=== PATIENT | male | born 1965 | race Caucasian/White ===

== ENCOUNTER 2018-06-10 12:43 | Outpatient (CLI) | payer MEDICAID, SELFPAY ==
[2018-06-10 14:12] LABS: Cholesterol 251 mg/dL (50-200); HDL Cholesterol 46 mg/dL (40-60); LDL CHOLESTEROL 158 mg/dL (<100); TSH (W/Ref FT4) 6.46 uIU/mL (0.358-3.74); Triglyceride 204 mg/dL (30-150)
[2018-06-10 14:34] LABS: FREE T4 0.97 ng/dL (0.76-1.46)
[2018-06-12 10:24] LABS: PSA, Screening 0.7 ng/ml (0-3.5)
== END 2018-06-10 13:03 ==
PROVIDERS: PCP Family Medicine; Visit Provider Family Medicine
DX: R94.6 Abnormal results of thyroid function studies (principal); Z13.220 Encounter for screening for lipoid disorders; Z12.5 Encounter for screening for malignant neoplasm of prostate
CPT/HCPCS: 36415; 80061; 83721; 84153; 84439; 84443

== ENCOUNTER 2019-06-17 08:14 | Outpatient (CLI) | payer MEDICAID, SELFPAY ==
[2019-06-17 09:17] LABS: Calculated LDL 168 mg/dL; Cholesterol 235 mg/dL (<200); HDL Cholesterol 43 mg/dL (40-60); TSH (W/Ref FT4) 0.95 uIU/mL (0.36-3.74); Triglyceride 120 mg/dL (<150)
[2019-06-22 09:32] LABS: PSA, Screening 0.7 ng/mL (0.0-3.5)
== END 2019-06-17 08:34 ==
PROVIDERS: PCP Family Medicine; Visit Provider Family Medicine
DX: E78.5 Hyperlipidemia, unspecified (principal); E03.9 Hypothyroidism, unspecified; Z12.5 Encounter for screening for malignant neoplasm of prostate
CPT/HCPCS: 36415; 80061; 84153; 84443

== ENCOUNTER 2020-02-26 07:09 | Outpatient (CLI) | payer MEDICAID, SELFPAY ==
[2020-02-26 11:52] LABS: Abs Immature Grans 0.03 10^3/uL (0.0-0.06); Absolute Basophil Count 0.03 10^3/uL (0.0-0.2); Absolute Eosinophil Count 0.16 10^3/uL (0.0-0.7); Absolute Lymphocyte Count 1.24 10^3/uL (1.2-3.4); Absolute Monocyte Count 0.33 10^3/uL (0.1-0.8); Basophils % 0.6; Eosinophils % 3.1; HCT 47.1 % (40.0-50.0); HGB 15.9 g/dL (13.5-17.5); Immature Grans % 0.6; Lymphocytes % 23.9; MCH 29.9 pg (27.0-33.0); MCHC 33.8 % (32.0-36.0); MCV 88.5 fL (80-95); MPV 11.4 fL (8.0-11.0); Monocytes % 6.4; Neutrophils % 65.4; Nucleated RBC 0 %; Platelet Count 189 10^3/uL (130-400); RBC 5.32 10^6/uL (4.36-5.78); RDW 12.6 % (11.8-14.1); WBC 5.19 10^3/uL (4.4-10.8)
[2020-02-26 12:05] LABS: Hemoglobin A1C 5.6 % (<5.7)
[2020-02-26 13:15] LABS: ALT 61 U/L (16-63); AST 31 U/L (15-37); Albumin 4.1 g/dL (3.4-5.0); Alkaline Phosphatase 59 U/L (46-116); Anion Gap 5.5 mmol/L (3-11); BUN 21 mg/dL (7-18); Bilirubin, Total 0.7 mg/dL (0.2-1.0); CO2 29.5 mmol/L (21.0-32.0); CREATININE 0.96 mg/dL (0.70-1.30); Calcium 9.3 mg/dL (8.5-10.1); Calculated LDL 131 mg/dL (<100); Chloride 105 mmol/L (98-107); Cholesterol 205 mg/dL (<200); Glucose 95 mg/dL (74-106); HDL Cholesterol 57 mg/dL (40-60); Potassium 4.2 mmol/L (3.5-5.1); Sodium 140 mmol/L (136-145); Total Protein 6.7 g/dL (6.4-8.2); Triglyceride 88 mg/dL (<150)
[2020-02-26 18:10] LABS: PSA, Screening 0.9 ng/mL (0.0-3.5)
[2020-02-28 11:49] LABS: Lipoprotein (a) <6 mg/dL (<=30)
[2020-03-01 16:50] LABS: Estradiol, Mass Spectrometry 16 pg/mL (10-40); Estrone 22 pg/mL (10-60)
[2020-03-08 09:23] LABS: Testosterone, Free 9.56 ng/dL (4.06-15.6); Testosterone, Total 354 ng/dL (240-950)
== END 2020-02-26 07:29 ==
PROVIDERS: PCP Family Medicine; Visit Provider Naturopath
DX: E78.5 Hyperlipidemia, unspecified (principal); Z12.5 Encounter for screening for malignant neoplasm of prostate; Z80.42 Family history of malignant neoplasm of prostate; Z77.011 Contact with and (suspected) exposure to lead
CPT/HCPCS: 36415; 80053; 80061; 83695; 84153; 84402; 84403; 82670; 82679; 83036; 83655; 85025

== ENCOUNTER 2020-03-18 07:37 | Outpatient (CLI) | payer MEDICAID, SELFPAY ==
[2020-03-22 13:36] LABS: Patient Race White; SARS-CoV-2 RNA Undetected (Undetected); SARS-CoV-2 Specimen Source Nasal
== END 2020-03-18 07:57 ==
PROVIDERS: PCP Family Medicine; Visit Provider Naturopath
DX: Z11.59 Encounter for screening for other viral diseases (principal)
CPT/HCPCS: U0003

== ENCOUNTER 2020-04-18 04:23 | Outpatient (CLI) | payer MEDICAID, SELFPAY ==
[2020-04-19 19:38] LABS: Patient Race White; SARS-CoV-2 RNA Undetected (Undetected); SARS-CoV-2 Specimen Source Nasal
== END 2020-04-18 04:43 ==
PROVIDERS: PCP Family Medicine; Visit Provider Family Medicine
DX: Z11.59 Encounter for screening for other viral diseases (principal)
CPT/HCPCS: U0003

== ENCOUNTER 2020-07-08 00:41 | Outpatient (CLI) | payer MEDICAID, SELFPAY ==
[2020-07-08 12:57] LABS: TSH (W/Ref FT4) 2.21 uIU/mL (0.36-3.74)
== END 2020-07-08 00:42 | disposition home or self-care (01) ==
LOC: LOS 00:41
PROVIDERS: PCP Family Medicine; Visit Provider Family Medicine
DX: E03.9 Hypothyroidism, unspecified (principal)
CPT/HCPCS: 36415; 84443

== ENCOUNTER 2021-10-09 08:57 | Day surgery (SDC) | payer MEDICAID, SELFPAY ==
--- NOTE | 2021-10-09 06:54 | W.COLOREPORT ---
Colonoscopy Report Date of procedure: 10/09/21 Pre-op diagnosis general: Colon Cancer screening Post-op diagnosis procedure note: same Procedure: Colonoscopy Surgeon: Nyla Lucas Anesthesia Type: General:No Airway Estimated blood loss (mL): 0 Pathology: none sent Complications: None Disposition: same day Indications: The patient is here for Colonoscopy pre-op.? He has no family history of colon cancer. He has not had any bowel habit changes. -Discussed colonoscopy bowel prep as well as the procedure. Discussed possible complications of the procedure to include bleeding, pain, perforation, missed small lesion/polyp, sore throat, aspiration and adverse reaction to the medications. Questions were answered to patient?s satisfaction. No guarantees were implied or given.? Prep: Miralax/Dulcolax Procedure Start Time: 11:06 Procedure End Time: 11:23 Retraction Time: 11 minutes Findings: Normal colon Procedure Description: After informed consent was obtained the patient was taken to the procedure room and placed in a left decubitous position. Monitors were applied and a time out was done. The patients name, date of , procedure, allergies to medications and metal in their body was reviewed. The patient was then sedated. Once sedated and comfortable a rectal exam was done. External exam was normal. Internal exam revealed a normal sphincter tone and no palpable masses. The prostate felt smooth and slightly enlarged. The scope was then introduced and retro-flexed. No internal hemorrhoids, polyps or masses were identified on retro-flexion. The scope was then advanced to the cecum without difficulty. The ileocecal vlave and appendiceal orifice were identified. The prep was adequate. The scope was then slowly retracted over 11 minutes back into the rectum. There were no polyps. There was no diverticulosis noted. The scope was removed and the patient was woken up and taken back to Same day surgery in stable condition. The patient tolerated the procedure well and there were no immediate complications. Follow up: The patient should follow up in 10 years unless they develop changes in bowel habits or other new gastrointestinal complaints.
--- NOTE | 2021-10-09 06:55 | PDOC.DSDIS_ITS ---
Discharge Plan Disposition Patient Disposition: HOME Condition: Good Discharge Details Reason For Visit: Colonoscopy Attending Provider: Nyla Lucas Primary Care Provider: Ifeanyi Conley Home Meds and New Rx's Prescriptions: Continued tadalafil 5 mg tablet 5 - 20 mg PO DAILY PRN (Reason: sexual activity) Qty: 30 3RF atorvastatin 40 mg tablet 20 mg PO DAILY Label Comments: 09/29/21 per pt he has decreased this to 1/2 pill a day. levothyroxine [Synthroid] 125 mcg tablet 125 mcg PO QAM Qty: 90 3RF Discontinued polyethylene glycol 3350 17 gram/dose powder 238 g PO ONCE Qty: 238 0RF Rx Instructions: take per colonoscopy instructions bisacodyl [Dulcolax (bisacodyl)] 5 mg tablet,delayed release (DR/EC) 5 mg PO ONCE Qty: 4 0RF Rx Instructions: take per colonoscopy instructions Discharge Instructions Additional Instructions: Findings: Normal Follow up: 10 years Please call if you develop: fevers >101.5 Nausea or Vomiting Abdominal pain that is not transient Rectal bleeding that is more then a tbsp A hard abdomen and inability to pass gas DAY SURGERY UNIT POST ENDOSCOPY INSTRUCTIONS Instructions for everyone who is given Anesthesia: For your safety, please do the following for the next 24 Hours: a. Do not drive or operate dangerous equipment b. Do not drink alcohol beverages or use any recreational drugs for the first 24 hours or while taking pain medications. The medications in your body may have a reaction that can be dangerous. c. Do not make any important decisions or sign any important papers 1. Generally there are no restrictions on your activity after a day or so has g one by, but you may feel a bit fatigued for a few days. 2. After you arrive home you may have a light meal and return to a normal diet as you can tolerate it without feeling sick to your stomach. 3. After surgery, you may feel pain or discomfort. This should be only transient, but if it persists please contact your doctor. 4. If there are any questions regarding the findings of your procedure, please feel free to contact your doctor. 6. If you are unable to contact your doctor with a problem, contact the hospital at [phone]. 7. Continue all your regular medications unless directed otherwise. I understand the above instructions and have no questions. Signature of Patient or Responsible Adult Escort Date/Time Name of Responsible Adult Escort Signature of Nurse Date/Time Activity:: Activity as Tolerated Diet:: As Tolerated Discharge Orders Discharge Orders: Discharge Order (Routine); Ordered 10/09/21 Ordered By: Nyla Lucsa
[2021-10-09 09:06] VITALS: BP 129/90; PULSE 63; RESP 17; TEMP 36.9; O2SAT 99
[2021-10-09] MEDS: Lactated Ringers 1,000 ML 80 ML IV (09:24)
--- NOTE | 2021-10-09 10:11 | W.ANESPRE ---
General Info Date of Service Date Performed: 10/09/21 Height: 5 ft 6 in Weight: 72.3 kg Body Mass Index (BMI): 25.7 Surgical Procedure: Operation Date: 10/09/21 10:50 Proposed Procedure Side Surgeon p Colonoscopy Nyla Lucas MD Meds Allergies and Home Medications Allergies Allergy/AdvReac Type Severity Reaction Status Date / Time No Known Allergies Allergy Verified 10/09/21 09:16 Home Medication Medication Instructions Recorded tadalafil 5 mg tablet 5 - 20 mg PO DAILY PRN sexual 07/13/20 activity #30 tabs levothyroxine 125 mcg tablet 125 mcg PO QAM #90 tabs 09/01/21 (Synthroid) atorvastatin 40 mg tablet 20 mg PO DAILY 09/29/21 bisacodyl 5 mg tablet,delayed 5 mg PO ONCE colonscopy bowel prep 09/29/21 release (Dulcolax (bisacodyl)) #4 tabs polyethylene glycol 3350 17 238 g PO ONCE colonoscopy prep 09/29/21 gram/dose oral powder #238 grams Current Visit Medications: Current Medications Generic Name Dose Route Start Last Admin Trade Name Freq PRN Reason Stop Dose Admin Hyoscyamine Sulfate 0.125 mg 10/09/21 06:56 Hyoscyamine 0.125 Mg Sl/Oral/Chew SL DIRECTED PRN Ringer's Solution 1,000 mls @ 80 mls/hr 10/09/21 06:00 10/09/21 09:24 IV 11/05/21 23:59 80 mls/hr INFUSION ALEXANDRO Administration IV Miscellaneous Supplies 1 each 10/09/21 06:00 Iv Access IV 11/05/21 23:59 DIRECTED ALEXANDRO Ondansetron HCl 4 mg 10/09/21 06:56 Ondansetron 4 Mg/2 Ml Vial IVP Q4H PRN PRN Nausea / Vomiting Sodium Chloride 0 ml 10/09/21 06:00 Normal Saline Flush 10 Ml Syr IV 11/05/21 23:59 PRN PRN Sodium Chloride 0 ml 10/09/21 06:00 Normal Saline 10 Ml Vial IJ 11/05/21 23:59 DIRECTED PRN Sterile Water 0 ml 10/09/21 06:00 Water,Injection,Sterile 10 Ml Vial IJ 11/05/21 23:59 DIRECTED PRN PFSH Active Problems Active Problems: Problem Status Onset Code Screening for colon cancer Z12.11 Prostatitis N41.9 Hyperlipidemia, unspecified E78.5 Hypothyroidism, unspecified E03.9 Surgical History Surgical History FX LEFT TIB/FIB AGE 26 LIVER BIOPSY LRFT THUMB FRACTURE AGE 19 Tobacco Smoking/Tobacco Use Status: Never Passive smoking exposure: No Second hand exposure: No Alcohol Alcohol Intake: current Alcohol intake frequency: 0-2 drinks per day Alcohol type: beer and wine Substance Use Substance use: Rarely Substance use type: unknown Vital Signs and Lab Results Vital Signs Most Recent Vital Signs in EMR: Most Recent Vital Signs Temp Pulse Resp BP Pulse Ox 36.9 C 63 17 129/90 99 10/09/21 09:06 10/09/21 09:06 10/09/21 09:06 10/09/21 09:06 10/09/21 09:06 Lab Results Blood Type / Crossmatch: No Data to Display Complete Blood Count: No Data to Display Complete Metabolic Panel: No Data to Display Liver Function Panel: No Data to Display Coagulation Panel: No Data to Display Cardiac Panel: No Data to Display Arterial Blood Gas: No Data to Display Venous Blood Gas: No Data to Display Pancreas Panel: No Data to Display Thyroid Panel: No Data to Display Infectious Disease: No Data to Display Blood Cultures: No Data to Display Toxicology Panel: No Data to Display Anesthesia Assessment and Plan Anesthesia History Personal History: No History of Anesthesia Complications Family History: No Family History of Anesthesia Complications Exercise Tolerance Exercise Tolerance: Metabolic Equivalents>4 Cardiac & Pulmonary Exam Cardiac Exam: Normal S1/S2 Heart Sounds Pulmonary Exam: Clear Bilateral Breath Sounds Implantable Cardiac Device Does patient have a Pacemaker or an ICD?: No Airway Exam Known Difficult Airway: No Mallampati Class: 3 Mouth Opening: Normal (> 3cm) Thyromental Distance: Greater than 3 cm Neck Range of Motion: Full ROM Neck Circumference: Normal Teeth Condition: Normal Dentition ASA Classification ASA Score: ASA 2 Emergency Case?: No NPO Status NPO Status: NPO Clears >2 hours, Solids >8 hours Anesthesia Plan Resuscitation Status: Full Code Anesthesia Technique: General Anesthesia Airway Planned: Natural Airway Monitors Used: Standard Monitors Preoperative Comments:: 56 yo male for screening colonoscopy. Sig PMHx: hypothyroid (on levothyroxine),
[2021-10-09 10:12] VITALS: BMI 25.7
[2021-10-09 11:36] VITALS: BP 105/73; PULSE 64; RESP 17; TEMP 36.5; O2SAT 95
--- NOTE | 2021-10-09 11:36 | W.ANESPOSTOP ---
Postoperative Evaluation Date, Time and Location Date Performed: 10/09/21 Time Performed: 11:36 Patient Location: Day Surgery Unit Vital Signs Most Recent Imported Vital Signs: Most Recent Vital Signs Temp Pulse Resp BP Pulse Ox 36.9 C 63 17 129/90 99 10/09/21 09:06 10/09/21 09:06 10/09/21 09:06 10/09/21 09:06 10/09/21 09:06 Pain Score Most Recent Pain Score: Most Recent Pain Score Pain Level 0 10/09/21 09:06 Assessment Mental Status: Awake (Alert & Oriented to Patient Baseline) Airway and Respiratory Function: Patent airway with normal (patient baseline) respiratory exam Cardiovascular Function: Hemodynamically Stable Hydration Status: Adequately Hydrated Nausea & Vomiting: No Nausea or Vomiting Pain: Pt. Denies Any Pain Peripheral Nerve Block: Patient did not receive a nerve block
[2021-10-09 11:47] VITALS: BP 117/87; PULSE 71; RESP 18; TEMP 36.6; O2SAT 97
== END 2021-10-09 12:25 | disposition home or self-care (01) ==
PROVIDERS: PCP Family Medicine; Visit Provider Surgery
PROC: 0DJD8ZZ Inspection of Lower Intestinal Tract, Via Natural or Artificial Opening Endoscopic (ICD-10-PCS; CPT 45378; principal; 2021-10-09 10:45)
DX: Z12.11 Encounter for screening for malignant neoplasm of colon (principal); E03.9 Hypothyroidism, unspecified; E78.5 Hyperlipidemia, unspecified
CPT/HCPCS: 45378

== ENCOUNTER 2021-10-11 08:57 | Outpatient (CLI) | payer MEDICAID, SELFPAY ==
[2021-10-11 13:19] LABS: Calculated LDL 97 mg/dL (<100); Cholesterol 171 mg/dL (<200); HDL Cholesterol 42 mg/dL (40-60); Triglyceride 161 mg/dL (<150)
[2021-10-11 22:49] LABS: PSA, Screening 0.8 ng/mL (<=3.5)
== END 2021-10-11 08:58 | disposition home or self-care (01) ==
LOC: LOS 08:58
PROVIDERS: PCP Family Medicine; Referring Provider Family Medicine; Visit Provider Family Medicine
DX: E03.9 Hypothyroidism, unspecified (principal); E78.5 Hyperlipidemia, unspecified; Z12.5 Encounter for screening for malignant neoplasm of prostate
CPT/HCPCS: 36415; 80061; 84153; 84443

== ENCOUNTER 2022-10-08 16:02 | Outpatient (CLI) | payer MEDICAID, SELFPAY ==
--- NOTE | 2022-10-08 10:15 | DI.RAD_ITS ---
Exam(s) XR HAND RT COMPLETE EXAM: XR HAND RT COMPLETE CLINICAL HISTORY: evaluate for fx M79.641 PAIN RT HAND. TECHNIQUE: 2D digital imaging was performed. Three views. COMPARISON: No exams were available for comparison FINDINGS: BONES: There is a fracture of the neck of the 2nd metacarpal. There is mild displacement and comminu jorge fragment seen at the ulnar aspect. There is is no significant involvement of the articular surfa ce. No additional acute fractures are seen. . No bony destructive lesion is seen. JOINTS: No dislocation present. There are degenerative changes at the distal radial ulnar joint and r adial carpal joint SOFT TISSUE: Soft tissue swelling over dorsum of hand. IMPRESSION: Fracture of the distal 2nd metacarpal. DATA REPOSITORY: RADIATION DOSE DELIVERED:
== END 2022-10-08 16:22 ==
LOC: DI 16:08
PROVIDERS: PCP Family Medicine; Visit Provider Nurse Practitioner Family
DX: S62.300A Unspecified fracture of second metacarpal bone, right hand, initial encounter for closed fracture; X58.XXXA Exposure to other specified factors, initial encounter
CPT/HCPCS: 73130

== ENCOUNTER 2022-10-18 14:20 | Outpatient (CLI) | payer MEDICAID, SELFPAY ==
--- NOTE | 2022-10-18 14:00 | DI.RAD_ITS ---
Exam(s) XR HAND RT COMPLETE EXAM: XR HAND RT COMPLETE CLINICAL HISTORY: F/U FRACTURE. TECHNIQUE: 2D digital imaging was performed of the right hand. Three images were obtained. AP, late ral and oblique views were obtained. COMPARISON: CR XR HAND RT COMPLETE from 10/08/2022 FINDINGS: BONES: There has been no change in alignment of the fracture involving the neck of the 2nd metacarpal . Callus formation has developed about the fracture suggesting some interval healing. No new fractu re is seen. No bony destructive lesion is seen. JOINTS: No dislocation present. SOFT TISSUE: Normal. IMPRESSION: Healing right 2nd metacarpal fracture. DATA REPOSITORY: RADIATION DOSE DELIVERED:
== END 2022-10-18 14:21 | disposition home or self-care (01) ==
LOC: DIORS 14:20
PROVIDERS: PCP Family Medicine; Referring Provider Family Medicine; Visit Provider Physician Assistant
DX: S62.300D Unspecified fracture of second metacarpal bone, right hand, subsequent encounter for fracture with routine healing (principal); X58.XXXD Exposure to other specified factors, subsequent encounter
CPT/HCPCS: 73130

== ENCOUNTER 2022-11-14 08:23 | Day surgery (SDC) | payer MEDICAID, SELFPAY ==
[2022-11-14] VITALS (9 sets, daily range): BP systolic 122–163; BP diastolic 77–99; PULSE 46–53; RESP 12–18; TEMP 36.1–36.6; O2SAT 97–99; BMI 25.4
[2022-11-14] MEDS: Celecoxib 200 MG CAP PO (08:56)
[2022-11-14] MEDS: Gabapentin 300 MG CAP 600 MG PO (08:56)
[2022-11-14] MEDS: Lactated Ringers 1,000 ML 80 ML IV (08:57)
[2022-11-14] MEDS: Acetaminophen 500 MG TAB 1000 MG PO (08:57)
--- NOTE | 2022-11-14 09:00 | W.ANESPRE ---
General Info Date of Service Date Performed: 11/14/22 Height: 5 ft 6 in Weight: 71.5 kg Body Mass Index (BMI): 25.4 Surgical Procedure: Operation Date: 11/14/22 10:10 Proposed Procedure Side Surgeon p Herniorrhaphy Inguinal w/Mesh Right Nyla Lucas MD Meds Allergies and Home Medications Allergies Allergy/AdvReac Type Severity Reaction Status Date / Time No Known Allergies Allergy Verified 11/14/22 08:31 Home Medication Medication Instructions Recorded levothyroxine 125 mcg tablet 125 mcg PO QAM #90 tabs 09/26/22 (Synthroid) atorvastatin 40 mg tablet 40 mg PO DAILY #90 tabs 10/16/22 tadalafil 5 mg tablet 5 - 20 mg PO DAILY PRN sexual 10/16/22 activity #30 tabs Current Visit Medications: Current Medications Generic Name Dose Route Start Last Admin Trade Name Freq PRN Reason Stop Dose Admin Acetaminophen 1,000 mg 11/14/22 06:00 11/14/22 08:57 Acetaminophen 500 Mg Tab PO 12/13/22 23:59 1,000 mg PREOP ALEXANDRO Administration Celecoxib 200 mg 11/14/22 06:00 11/14/22 08:56 Celecoxib 200 Mg Cap PO 12/13/22 23:59 200 mg PREOP ALEXANDRO Administration Gabapentin 600 mg 11/14/22 06:00 11/14/22 08:56 Gabapentin 300 Mg Cap PO 12/13/22 23:59 600 mg PREOP ALEXANDRO Administration Ringer's Solution 1,000 mls @ 80 mls/hr 11/14/22 06:00 11/14/22 08:57 IV 12/13/22 23:59 80 mls/hr INFUSION ALEXANDRO Administration Cefazolin Sodium/Dextrose 2 gm in 50 mls @ 100 mls/hr 11/14/22 06:00 Ancef Duplex IVPB 12/13/22 23:59 PREOP ALEXANDRO Ondansetron HCl 4 mg/ Sodium 52 mls @ 200 mls/hr 11/14/22 06:36 Chloride IVPB 12/14/22 06:35 Q6H PRN PRN IV Miscellaneous Supplies 1 each 11/14/22 06:00 Iv Access IV 12/13/22 23:59 DIRECTED ALEXANDRO Sodium Chloride 0 ml 11/14/22 06:00 Normal Saline Flush 10 Ml Syr IV 12/13/22 23:59 PRN PRN Sodium Chloride 0 ml 11/14/22 06:00 Normal Saline 10 Ml Vial IJ 12/13/22 23:59 DIRECTED PRN Sterile Water 0 ml 11/14/22 06:00 Water,Injection,Sterile 10 Ml Vial IJ 12/13/22 23:59 DIRECTED PRN Tramadol HCl 50 mg 11/14/22 06:36 Tramadol 50 Mg Tab PO 12/14/22 06:35 Q6H PRN PRN Pain PFSH Active Problems Active Problems: Problem Status Onset Code Hepatitis C virus infection B19.20 Simple right inguinal hernia K40.90 Prostatitis N41.9 Hyperlipidemia, unspecified E78.5 Hypothyroidism, unspecified E03.9 Surgical History Surgical History FX LEFT TIB/FIB AGE 26 LIVER BIOPSY LRFT THUMB FRACTURE AGE 19 S/P colonoscopy (~10/09/21) Tobacco Smoking/Tobacco Use Status: Never Passive smoking exposure: No Second hand exposure: No Alcohol Alcohol Intake: current Alcohol intake frequency: 0-2 drinks per day Alcohol type: beer and wine Substance Use Substance use: Never Substance use type: does not use Vital Signs and Lab Results Vital Signs Most Recent Vital Signs in EMR: Most Recent Vital Signs Temp Pulse Resp BP Pulse Ox 36.3 C L 53 L 16 123/78 98 11/14/22 08:37 11/14/22 08:37 11/14/22 08:37 11/14/22 08:37 11/14/22 08:37 Lab Results Blood Type / Crossmatch: No Data to Display Complete Blood Count: No Data to Display Complete Metabolic Panel: No Data to Display Liver Function Panel: No Data to Display Coagulation Panel: No Data to Display Cardiac Panel: No Data to Display Arterial Blood Gas: No Data to Display Venous Blood Gas: No Data to Display Pancreas Panel: No Data to Display Thyroid Panel: No Data to Display Infectious Disease: No Data to Display Blood Cultures: No Data to Display Toxicology Panel: No Data to Display Anesthesia Assessment and Plan Anesthesia History Personal History: No History of Anesthesia Complications Family History: No Family History of Anesthesia Complications Exercise Tolerance Exercise Tolerance: Metabolic Equivalents>4 Pertinent Negatives Pertinent Negatives: No Symptoms of GERD, No Major Cardiovascular Symptoms or Complaints, No Major Pulmonary Symptoms or Complaints and No History of CVA/TIA Cardiac & Pulmonary Exam Cardiac Exam: Normal S1/S2 Heart Sounds Pulmonary Exam: Clear Bilateral Breath Sounds Implantable Cardiac Device Does patient have a Pacemaker or an ICD?: No Airway Exam Known Difficult Airway: No Mallampati Class: 3 Mouth Opening: Normal (> 3cm) Thyromental Distance: Greater than 3 cm Neck Range of Motion: Full ROM Neck Circumference: Normal Teeth Condition: Normal Dentition ASA Classification ASA Score: ASA 2 Emergency Case?: No NPO Status NPO Status: NPO Clears >2 hours, Solids >8 hours Anesthesia Plan Resuscitation Status: Full Code Anesthesia Technique: General Anesthesia Airway Planned: LMA Pain Management: Surgeon and patient request nerve block Monitors Used: Standard Monitors
[2022-11-14] MEDS: ceFAZolin 2 GM/50 ML BAG IVPB (09:44)
[2022-11-14] MEDS: Bupivacaine 0.25% Pres-Free 30 ML VIAL (10:10)
--- NOTE | 2022-11-14 10:17 | W.ANESNERVE ---
Nerve Block Single Injection Procedure Date and Time Date Performed: 11/14/22 Procedure Start: 09:54 Location Where Procedure Performed Procedure Location: Operating Room Procedure Stop: 10:02 Reason Performed: Postoperative Analgesia Requesting Provider: Nyla Lucas Timeout Performed Timeout Performed: Yes Monitoring Used ECG, Blood Pressure, SpO2 and ETCO2 Sterility Sterility: Hand Hygiene, Surgical Cap, Surgical Mask and Sterile Gloves Sedation Given During Procedure Sedation Given (Indicate Dose Given): No Sedation given Patient Mental Status Patient Mental Status: Performed under general anesthesia Nerve Block 1st Nerve Block: Laterality: Right Block Type: TAP Unilateral Ultrasound Image Saved?: Yes Needle / Catheter Used: 100mm SonoPlex II Local Anesthetic Bolus (Indicate Dose Given): Bupivacaine 0.25% Dose:: 20ml Additives (Indicate Dose Given): None Ultrasound: Sterile probe cover and gel used Nerve Stimulator: Not Used Paresthesia: None Post Procedure Pain score (0-10): 0 Procedure Tolerated: No Complications and Patient tolerated well Procedure Outcome: Successful Performed By: Almita Florez Supervised By: Shaun Lemon
--- NOTE | 2022-11-14 11:51 | ROE_ITS ---
Date of service: 11/14/22 Time of Service: 11:51 Operative Note Operative Note DATE OF PROCEDURE: 11/14/22 PRE-OP DIAGNOSIS: Right inguinal hernia POST-OP DIAGNOSIS: same (indirect) PROCEDURE: Right inguinal hernia repair with mesh SURGEON: Nyla Lucas INTERNATIONAL PROJECT MANAGER: Kimberli Crockett ANESTHESIA TYPE: Local By Surgeon, General LMA/ETT and Primary Nerve Block Refer to Anesthesia Record ESTIMATED BLOOD LOSS: 10 PATHOLOGY: none sent COMPLICATIONS: None Patient was transported to: PACU Patient's condition: stable Indications: Mr. Rodarte is a pleasant 57-year-old gentleman with a right inguinal hernia which is starting to cause him discomfort.? I reviewed the pathophysiology or inguinal hernias with him using a pamphlet with pictures.? We reviewed the technical aspects of the surgery as well as the risks, benefits and complications.? At the end of the conversation patient had a good understanding of the risks, benefits and complications.? Risks, benefits and complications have been reviewed. Complications include but are not limited to bleeding, infection, injury to vas, vessels and nerves, injury to bowel, recurrence (3- 5%), chronic pain and adverse reaction to medications. Questions were entertained and answered to their satisfaction and they wished to proceed. Findings: Indirect hernia defect Procedure Description: After informed consent was obtained the patient was taken to the operating room and placed in a supine position. Monitors and SCDs were applied and a timeout was done. The patient's name, date of , procedure type, procedure site, allergies to medications, preoperative antibiotic, and DVT prophylaxis were all reviewed. Fire risk was assessed. HIs RLQ was clipped of Hair. Next anesthesia did a tap block on the right side under ultrasound guidance. Please see their separate dictation. Once anesthesia was done the abdomen was prepped and draped in a sterile surgical fashion. 0.25% Marcaine was injected into the dermis in the right lower quadrant. An incision was made with a 10 blade in the right lower quadrant. Dissection was done with cautery through the subcutaneous tissues and Lupe's fascia down to the external oblique fascia. The external ring was identified and the external oblique fascia was opened sharply through the external ring. The cut fascia was grasped with hemostats the cord structures were identified and a Victor drain was placed around them. The ilioinguinal nerve was identified and cut. The cremasteric muscle was dissected away from the cord structures using both cautery and blunt dissection. A hernia sac was identified and removed from the cord structures using blunt dissection. The hernia sac was suture ligated and amputated. The remnant was pushed back into the peritoneum. An XL plug was placed into the indirect defect and secured with 3-0 proline. A flat piece of mesh was then attached to the lacunar ligament using a 2-0 Prolene double armed suture. The mesh was secured laterally and medially with a 2-0 Prolene, with a running suture. The tails of the mesh were wrapped around the cord structures effectively cinching down the internal ring. Once the mesh was secured the tissues were irrigated with some normal saline. No bleeding was identified. The external oblique fascia was reapproximated using 2-0 Vicryl running suture. The Lupe's fascia was reapproximated using interrupted 3-0 Vicryl. The dermis was reapproximated with a running 4-0 Vicryl. The skin was cleaned and dried and dermabond was applied. The patient was woken up and taken back to recovery in stable condition. There were no immediate complications. Sponge, instrument and needle counts were correct at the end of the case x2. She
--- NOTE | 2022-11-14 11:57 | PDOC.DSDIS_ITS ---
Date of service: 11/14/22 Time of Service: 12:37 Discharge Plan Disposition Patient Disposition: Home Condition: Stable Discharge Details Reason For Visit: egd Attending Provider: Nyla Lucas Primary Care Provider: Ifeanyi Conley Home Meds and New Rx's Prescriptions: New tramadol 50 mg tablet 50 mg PO Q6H PRNQty: 14 0RF Continued tadalafil 5 mg tablet 5 - 20 mg PO DAILY PRN (Reason: sexual activity) Qty: 30 3RF atorvastatin 40 mg tablet 40 mg PO DAILY Qty: 90 3RF Patient Comments: 09/29/21 per pt he has decreased this to 1/2 pill a day. levothyroxine [Synthroid] 125 mcg tablet 125 mcg PO QAM Qty: 90 3RF Discharge Instructions Additional Instructions: Activity at Home after surgery: 1. Make sure you walk outside at least 4 times per day 2. You should be able to climb a flight of stairs 3. No driving while in pain or taking pain medications 4. No strenuous activity or heavy lifting for 4 weeks (open surgery) Diet, Nutrition, & wound healin. Avoid alcohol until after you are recovered from your surgery 2. Make sure to eat plenty of lean protein (meat, fish, eggs, cottage cheese, beans) 3. Eat a variety of fruits and vegetables. Eat plenty of high fiber foods to avoid constipation. 4. Drink plenty of liquids to stay hydrated and avoid constipation Pain Medications: 1. Tylenol 650mg every 6 hours as needed and Ibuprofen 600 mg every 6 hours as needed. You may alternate between the 2 medications every 3 hours 2. If a narcotic has been prescribed take as directed only for breakthrough pain For Constipation: 1. Take Milk of Magnesia or MiraLax as needed for constipation Other: 1. You may shower daily. Do not scrub the incisions 2. Do not soak the incisions for 1 week 3. You may alternate ice and heat as needed for pain and swelling Wound Care: 1. Keep the incisions clean and dry Please call our office if you develop: 1. Fevers >101.5 2. Nausea or Vomiting 3. Worsening pain 4. Redness and thick discharge from the wounds If after hours please call the Hospital at and ask to speak to the on-call surgeon Referrals: Nyla Lucas MD [ [facility] STAFF PHYSICIAN] - 11/28/22 1:30 pm Activity:: as above Shower/Bathe:: 24 hours Diet:: As Tolerated Discharge Orders Discharge Orders: Discharge Order (Routine); Ordered 11/14/22 Ordered By: Nyla Lucas DS: Diagnosis Discharge Diagnosis (1) Simple right inguinal hernia: Status: Acute Asessment and Plan: Patient is seen and examined after their endoscopy. Patient has minimal sore throat. They have been able to tolerate liquids. They do not have any Nausea or Vomiting. They are not having any chest pain or shortness of breath. They have been able to pass gas and are not having any abdominal pain or distention. they have not vomited any blood. The vital signs have been stable-see nursing notes. We discussed findings on their endoscopy We reviewed the importance of lifestyle modifications- see diet recommendations We reviewed any new medications that the patient may be prescribed- see medicine reconciliation. Patient will either be sent a letter with the biopsy results or follow up in the office- see discharge instructions Patient was given explicit instructions for emergency follow up post endoscopy- see discharge instructions Patient verbalized understanding and was discharged in stable and satisfactory condition. See nursing notes.
--- NOTE | 2022-11-14 12:02 | W.ANESPOSTOP ---
Postoperative Evaluation Date, Time and Location Date Performed: 11/14/22 Time Performed: 12:02 Patient Location: Day Surgery Unit Vital Signs Most Recent Imported Vital Signs: Most Recent Vital Signs Temp Pulse Resp BP Pulse Ox 36.5 C 48 L 14 153/77 H 98 11/14/22 11:45 11/14/22 11:45 11/14/22 11:45 11/14/22 11:45 11/14/22 11:45 Pain Score Most Recent Pain Score: Most Recent Pain Score Pain Level 1 11/14/22 11:45 Assessment Mental Status: Awake (Alert & Oriented to Patient Baseline) Airway and Respiratory Function: Patent airway with normal (patient baseline) respiratory exam Cardiovascular Function: Hemodynamically Stable Hydration Status: Adequately Hydrated Nausea & Vomiting: No Nausea or Vomiting Pain: Pain is tolerable per patient Peripheral Nerve Block: Regional nerve block not resolved at time of post operative discharge
[2022-11-14] MEDS: traMADol 50 MG TAB PO (12:38)
== END 2022-11-14 13:10 | disposition home or self-care (01) ==
PROVIDERS: PCP Family Medicine; Visit Provider Surgery
PROC: (CPT 49505; principal; 2022-11-14 10:00)
DX: K40.90 Unilateral inguinal hernia, without obstruction or gangrene, not specified as recurrent (principal); E03.9 Hypothyroidism, unspecified; E78.5 Hyperlipidemia, unspecified
CPT/HCPCS: 49505; 76942; C1781; J0690; J1100; J2250; J2405; J2704

== ENCOUNTER 2024-06-24 09:43 | Emergency (ER) | payer MEDICAID, SELFPAY ==
[2024-06-24 09:50] VITALS: BP 183/100; PULSE 63; RESP 18; TEMP 36.5; O2SAT 96
--- NOTE | 2024-06-24 10:00 | DI.RAD_ITS ---
Exam(s) XR RIBS LT W PA LAT CHEST EXAM: XR RIBS LT W PA LAT CHEST CLINICAL HISTORY: fall saturday, . posterior rib pain TECHNIQUE: 2D digital imaging was performed. Six images are obtained. COMPARISON: No exams were available for comparison FINDINGS: MEDIASTINUM: Normal. HEART: Normal. PULMONARY VASCULATURE: Normal. LUNGS: Clear. PLEURAL SPACE: There is blunting of the left costophrenic angle which may represent scarring or small pleural effusion. There is no evidence of a pneumothorax. There is no evidence of a right pleural effusion. BONE:Within normal limits for the patient's age. There are old healed right rib fracture deformities . LEFT RIBS: Normal. No displaced rib fractures identified. OTHER FINDINGS:Normal. IMPRESSION: 1. No acute pulmonary findings. 2. Unremarkable left ribs. 3. Blunting of the left costophrenic angle which may represent scarring or tiny pleural effusion. No pneumothorax is identified. DATA REPOSITORY: RADIATION DOSE DELIVERED:
--- NOTE | 2024-06-24 10:17 | ED.GENADUL_ITS ---
Discharge Plan Disposition Patient Disposition: Home Condition: Stable Discharge Details Clinical Impression: Contusion of rib on left side Primary Care Provider: Ifeanyi Conley ED Provider: Mariah Min Home Meds and New Rx's Prescriptions: New lidocaine [Lidoderm] 5 % adhesive patch,medicated 1 patch topical DAILY Qty: 30 0RF Rx Instructions: leave on most painful area for up to 12 hrs No Action tadalafil 5 mg tablet 5 - 20 mg PO DAILY PRN (Reason: sexual activity) Qty: 30 3RF atorvastatin 40 mg tablet 40 mg PO DAILY Qty: 90 3RF Patient Comments: 09/29/21 per pt he has decreased this to 1/2 pill a day. levothyroxine [Synthroid] 125 mcg tablet 125 mcg PO QAM Qty: 90 3RF Discharge Instructions Instructions: Bruised Rib (DC) Additional Instructions: You were seen in the emergency department today for evaluation of rib pain after a fall, and were found to have bad bruising of those ribs. In our department you had a full physical examination performed, had an x-ray that did not show any broken ribs, and the lung underneath appears healthy. It is important that you manage your pain actively to prevent shallow breaths that could cause pneumonia. To do this, you need to take Tylenol and ibuprofen throughout the day. Start with ibuprofen, 600 mg in the morning, and take 2 Tylenol 3 hours after that. 3 hours after the Tylenol dose, it will be time for another dose of ibuprofen, and so on. You can also use the lidocaine patches which I have sent to your pharmacy. If you continue to have pain despite taking Tylenol and ibuprofen, I have provided you with a short course of oral morphine. Please avoid driving while on this medication as it can make you sleepy. I provided you with an incentive spirometer, the breathing machine that you use to open your lungs up fully. You need to do this several times per day, at least 3 times each session to prevent your lungs from becoming too closed and causing infection or pneumonia. Please follow-up with your primary care provider in the next few days to discuss this visit and any symptoms that change, worsen, or persist. Thank you for allowing us to be part of your care. HPI General Mode of arrival: ambulatory . Date/Time Provider Initiated Documentation: 06/24/24 09:46 . Limitations to Documentation: no limitations . Information obtained by: patient, family and old records reviewed . HPI Narrative: HPI: This is a 59-year-old male patient with a past medical history significant for hypothyroidism, hyperlipidemia, presenting for evaluation after a fall. On Saturday the patient was carrying some wood and slipped on ice, falling and landing on his left back. He reports that he initially did not think much of the fall, and did not sustain any additional injuries such as head strike, pelvic injury, etc. He states that he has had some pain in his left ribs which has worsened over the last few days. He took a dose of ibuprofen last night and this morning with some improvement but not resolution of his symptoms. He does not take blood thinning medications and was in his normal state of health prior to the fall. He did not sustain loss of consciousness, and his fall was not preceded by any dizziness or chest pain. Exam: Gen: Awake and alert, in no apparent distress HEENT: Non-icteric sclera, PERRL, no visual acuity changes. Scalp atraumatic Neck: Supple, no C-spine tenderness or step-offs Lungs: No apparent respiratory distress, normal respiratory effort. Lung sounds clear and equal bilaterally without wheezes, rhonchi, rales CV: Appears well perfused, heart with regular rate and rhythm Abdomen: Non-distended, soft, nontender MSK: Moves 4 extremities without apparent limitation in ROM. The patient has no T or L-spine tenderness, but is tender over the left posterior ribs without deformity or overlying contusion. Skin: Visualized skin without rashes, cyanosis. Neuro: Normal Gait, no obvious focal deficits or facial asymmetry. Speaks in full, clear sentences. Psych: Appropriate for situation. MDM: This is a 59-year-old male patient presenting for evaluation of rib injuries after a fall. Differential includes but is not limited to rib fracture, contusion, certainly considered underlying lung injury including pulmonary contusion, pneumothorax, atelectasis, pneumonia. I am reassured against head injury, neck or spine injury, and the patient is reassuringly without medical complaints prior to this mechanical fall. We will provide the patient with multimodal pain management to include Tylenol and lidocaine, we will provide him with an incentive spirometer, and obtain an x-ray of the left ribs. ED Course: I reviewed the patient's x-ray, which shows no evidence of rib fracture or underlying pneumonia or pneumothorax. He does have blunting of his costophrenic angle which may represent a very small pleural effusion, or scarring. I shared these findings with the patient, and provided him with an incentive spirometer. I counseled him on its use and he was able to achieve inspiratory volumes between 1250 and 1500 mL. I provided him with a prescription for Lidoderm patches as well as a take-home bottle of oral morphine, and counseled him on multimodal pain management for rib injuries. At this time, the patient has had a full medical evaluation and is safe for discharge to home. They are hemodynamically stable, ambulatory, and tolerating PO. They are understanding of the follow-up plan and return precautions. They left our facility without incident. Mariah Min MD Related Data Home Medications ?Medication ?Instructions ?Recorded ?Confirmed tadalafil 5 mg tablet 5 - 20 mg (1 - 4 x 5 mg) PO DAILY 10/16/22 06/24/24 PRN sexual activity #30 tabs atorvastatin 40 mg tablet 40 mg PO DAILY #90 tabs 10/31/23 06/24/24 levothyroxine 125 mcg tablet 125 mcg PO QAM #90 tabs 11/04/23 06/24/24 (Synthroid) lidocaine 5 % topical patch 1 patch topical DAILY #30 ea 06/24/24 (Lidoderm) Previous Rx's ?Medication ?Instructions ?Recorded tadalafil 5 mg tablet 5 - 20 mg (1 - 4 x 5 mg) PO DAILY 10/16/22 PRN sexual activity #30 tabs atorvastatin 40 mg tablet 40 mg PO DAILY #90 tabs 10/31/23 levothyroxine 125 mcg tablet 125 mcg PO QAM #90 tabs 11/04/23 (Synthroid) lidocaine 5 % topical patch 1 patch topical DAILY #30 ea 06/24/24 (Lidoderm) Allergies Allergy/AdvReac Type Severity Reaction Status Date / Time No Known Allergies Allergy Verified 06/24/24 09:53 General Stated Complaint: Fall/Non TraumaCriteria TATE: 4 Course Vital Signs Vital signs: Vital Signs Temperature 36.5 C 06/24/24 09:50 Pulse 63 06/24/24 09:50 Respiratory Rate 18 06/24/24 09:50 Blood Pressure 183/100 H 06/24/24 09:50 Pulse Oximetry 96 06/24/24 09:50 Temperature 36.5 C 06/24/24 09:50 Temperature Source Oral 06/24/24 09:50 Pulse 63 06/24/24 09:50 Respiratory Rate 18 06/24/24 09:50 Respiratory Effort Normal 06/24/24 10:01 Respiratory Depth Normal 06/24/24 10:01 Respiratory Pattern Normal 06/24/24 10:01 Blood Pressure 183/100 H 06/24/24 09:50 Blood Pressure Position Sitting 06/24/24 09:50 Pulse Oximetry 96 06/24/24 09:50 Oxygen Delivery Method Room Air 06/24/24 09:50 Oxygen Flow Rate 0 06/24/24 09:50 Pain Level 10 06/24/24 10:01 Medical Decision Making Quality:SDOH Health Related Social Needs: No Data to Display PFSH All Active Problems (Updated 06/24/24 @ 11:21 by Mariah Min MD) Contusion of rib on left side (Acute) Fracture of second metacarpal bone of right hand (Acute) Hepatitis C virus infection (Chronic) Simple right inguinal hernia (Acute) Prostatitis (Acute) Hyperlipidemia, unspecified (Acute) Hypothyroidism, unspecified (Acute) Surgical History FX LEFT TIB/FIB AGE 26 H/O right inguinal hernia repair (~10/2022) LIVER BIOPSY LRFT THUMB FRACTURE AGE 19 S/P colonoscopy (~10/09/21) Family History Mother MS (multiple sclerosis) Father Heart disease Hyperlipidemia Myocardial infarction Prostate cancer Brother Hyperlipidemia Heart disease FAMILY HISTORY Hyperlipidemia Colorectal cancer Son No problems noted. Son No problems noted. Son No problems noted. Brother No problems noted. Social History Smoking/Tobacco Use Status: Never Second Hand Exposure: No Smoking risk assessment performed?: Yes Alcohol Intake: current Alcohol Intake frequency: 0-2 drinks per day Alcohol type: beer and wine Drug use: Never Substance use type: does not use Caregiver/Support person: No Household members: spouse and children Housing: house Communication Needs: None Pets and animals: Yes Pets and animals: horse(s) and farm animals Sexually active: Yes Do you think of yourself as: straight/heterosexual Current gender identity: male What is your relationship status?: How often do you talk on the phone with friends or family?: three or more times per week How often do you get together with friends or relatives?: decline to answer How often do you attend cheondoism or jainism services?: decline to answer Do you belong to any clubs or organized social groups?: no Panel score (0-1 are the most socially isolated patients): 2 What type of physical activity do you participate in: walking Duration: 15-30 minutes/day Frequency: daily Beverly/Pentecostal: No preference Special beverly needs: No Seatbelt use: always Helmet use: Yes Helmet use: always Drive intox or ride w/intox bookmobile driver: No Do you feel safe at home: Yes Do you feel safe in your relationship?: Yes PAWSS Have you Been Recently Intoxicated or Drunk Within the Last 30 days?: No Have you Ever Experienced Previous Episodes of Alcohol Withdrawal?: No Have you ever Experienced Withdrawal Seizures?: No Have you ever Experienced Delirium Tremens(DT)s?: No Have you ever undergone Alcohol Rehabilitation Treatment (i.e, inpt ot outpatient treatment programs)?: No Have you ever Experienced Blackouts?: No Have you ever Combined Alcohol with other Downers within the last 90 days?: No Have you ever Combined Alcohol with any other Substance of Abuse during the last 90 days?: No Positive Blood Alcohol level on Presentation? [PCS.BAL]: No Evidence of Increased Autonomic Activity (i.e. HR>120, tremor, sweating, agitation, nausea)?: No Result: 0
[2024-06-24] MEDS: Acetaminophen 500 MG TAB 1000 MG PO (10:28)
[2024-06-24] MEDS: Lidocaine 5% Patch 1 PATCH TP (10:28)
--- OUTSIDE RECORDS SUMMARY | 2024-06-24 11:15 | XMS_ITS | Clinical Summary ---
Author Organization [facility] Address [address] [place] [address] Care Team Providers Care Puppet Developer Name Role Phone Unavailable Primary Care Provider Unavailabl e Social History Tobacco Use Types Packs/Day Years Used Date Smoking Tobacco: Never Assessed Sex and Gender Information Value Date Recorded Sex Assigned at Not on file Legal Sex Male 18:15 EST Gender Identity Not on file Sexual Orientation Not on file Plan of Treatment Health Maintenance Due Date Last Done Comments Hepatitis C Screen 1965 Hepatitis B Vaccine (1 of 3 - 19+ 3-dose series) 03/04 COVID-19 Vaccine (2023- season) 2024
--- OUTSIDE RECORDS SUMMARY | 2024-06-24 11:15 | XMS_ITS | Encounter Summary ---
Author Organization [facility] Address [address] [place] [address] Care Team Providers Care Infrastructure Tech Name Role Phone Unavailable Primary Care Provider Unavailabl e Encounter Details Date Type Department Care Team (Late st Contact Info) Description 06/19/2019 Lab Requisition [facility] Pathology & Laboratory Medicine - [facility] [address] [place] [address] Unknown, Provider, Social History Tobacco Use Types Packs/Day Years Used Date Smoking Tobacco: Never Assessed Sex and Gender Information Value Date Recorded Sex Assigned at Not on file Legal Sex Male 18:15 EST Gender Identity Not on file Sexual Orientation Not on file documented as of this encounter Plan of Treatment Not on file documented as of this encounter Procedures Procedure Name Priority Date/Time Associated Diagnosis Comments PSA TOTAL, DIAGNOSTIC Routine 06/17/2019 8:20 EST documented in this encounter Results * PSA TOTAL, DIAGNOSTIC (06/17/2019 8:20 EST) PSA 0.7 0.0 - 3.5 ng/mL 06/22/2019 9:28 EST [facility] Blood VENOUS BLOOD / Unknown 06/17/2019 8:20 EST 06/19/2019 16:45 EST Narrative [facility] - 06/22/2019 9:28 EST NOTE: Serum PSA concentration should not be interpreted as absolute evidence for the presence or absence of malignant disease. Assayed on Siemens [employer] Centaur XPT using chemiluminescent technology.??Values obtained by using different assay methods cannot be used interchangeably. us Provider Unknown CHEMISTRY & BLOOD GAS ORDERA BLES Final Result [facility] [address] [place] [address] documented in this encounter Visit Diagnoses Not on filedocumented in this encounter
--- OUTSIDE RECORDS SUMMARY | 2024-06-24 11:15 | XMS_ITS | Encounter Summary ---
Author Organization [facility] Address [address] [place] [address] Care Team Providers Care Switch Inspector Name Role Phone Unavailable Primary Care Provider Unavailabl e Encounter Details Date Type Department Care Team (Late st Contact Info) Description 02/26/2020 Lab Requisition [facility] Pathology & Laboratory Medicine - [facility] [address] [place] [address] Outr Resulting Lab, Provider Social History Tobacco Use Types Packs/Day Years [...] Associated Diagnosis Comments PSA TOTAL, DIAGNOSTIC Routine 02/26/2020 11:45 EDT [facility] Routine 02/26/2020 11:45 EDT documented in this encounter Results * PSA TOTAL, DIAGNOSTIC (02/26/2020 11:45 EDT) PSA 0.9 0.0 - 3.5 ng/mL 02/26/2020 18:06 EDT [facility] Blood VENOUS BLOOD / Unknown 02/26/2020 11:45 EDT 02/26/2020 16:03 EDT Narrative [facility] - 02/26/2020 18:06 EDT NOTE: Serum PSA concentration should not be interpreted as absolute evidence for the presence or absence of malignant disease. Assayed on Siemens [employer]IA [employer] XPT using chemiluminescent technology.??Values obtained by using different assay methods cannot be used interchangeably. us Provider Outr Resulting Lab CHEMISTRY & BLOOD GA S ORDERABLES Final Result Performing Organization Address [facility]/ZIP Co de Phone Number [facility] [address] [place] [address] * (ABNORMAL) [facility] (02/26/2020 11:45 EDT) Lead 7.6(H) <=4.9 ug/dL 02/29/2020 14:51 EDT [facility] Comment:Blood lead levels gr eater than or equal to 5 ug/dL may be due to contamination and should be confirmed with venous blood. Blood VENOUS BLOOD / Unknown 02/26/2020 11:45 EDT 02/26/2020 16:04 EDT Narrative [facility] - 02/29/2020 14:51 EDT Testing performed using [employer] Atomic Absorption Spectroscopy. This test was developed and its performance characteristics determined by the [facility]. ??It has not been cleared or approved by the FDA. ??The laboratory is regulated under CLIA as qualified to perform high complexity testing. ??This test is used for clinical purposes. us Provider Outr Resulting Lab CHEMISTRY & BLOOD GA S ORDERABLES Final Result Performing Organization Address City/[facility]/ZIP Co de Phone Number [facility] [address] [place] [address] documented in this encounter Visit Diagnoses Not on filedocumented in this encounter
--- OUTSIDE RECORDS SUMMARY | 2024-06-24 11:15 | XMS_ITS | Encounter Summary ---
Author Organization [facility] Address [address] [place] [address] Care Team Providers Care Loan Review Officer Name Role Phone Unavailable Primary Care Provider Unavailabl e Encounter Details Date Type Department Care Team (Late st Contact Info) Description 10/11/2021 Lab Requisition [facility] Pathology & Laboratory Medicine - [facility] [address] [place] [address] Outr Resulting Lab, Provider Social History Tobacco [...] Associated Diagnosis Comments PSA TOTAL, DIAGNOSTIC Routine 10/11/2021 10:42 EDT documented in this encounter Results * PSA TOTAL, DIAGNOSTIC (10/11/2021 10:42 EDT) PSA 0.8 <=3.5 ng/mL 10/11/2021 22:44 EDT [facility] Blood VENOUS BLOOD / Unknown 10/11/2021 10:42 EDT 10/11/2021 21:32 EDT Narrative [facility] - 10/11/2021 22:44 EDT NOTE: Serum PSA concentration should not be interpreted as absolute evidence for the presence or absence of malignant disease. Assayed on Siemens ADVIA Centaur XPT using chemiluminescent technology.??Values obtained by using different assay methods cannot be used interchangeably. us Provider Outr Resulting Lab CHEMISTRY & BLOOD GA S ORDERABLES Final Result [facility] [address] [place] [address] documented in this encounter Visit Diagnoses Not on filedocumented in this encounter
--- OUTSIDE RECORDS SUMMARY | 2024-06-24 11:15 | XMS_ITS | Referral Summary ---
Author Organization [facility] Address [address] [place] [address] Care Team Providers Care Bisque Kiln Drawer Name Role Phone Unavailable Primary Care Provider Unavailabl e Social History Tobacco Use Types Packs/Day Years Used Date Smoking Tobacco: Never Assessed Sex and Gender Information Value Date Recorded Sex Assigned at Not on file Legal Sex Male 18:15 EST Gender Identity Not on file Sexual Orientation Not on file Plan of Treatment Not on file
[2024-06-24] MEDS: MORPHine IR 15 MG TAB, 4 TABS/BTL PO (11:30)
[2024-06-24 11:34] VITALS: BP 183/100; PULSE 63; RESP 18; TEMP 36.5; O2SAT 96
== END 2024-06-24 11:39 | disposition home or self-care (01) ==
PROVIDERS: Emergency Provider Emergency Medicine; PCP Family Medicine
DX: S20.212A Contusion of left front wall of thorax, initial encounter (principal); W19.XXXA Unspecified fall, initial encounter
CPT/HCPCS: 99284; 71046; 71100

== ENCOUNTER 2024-08-20 08:51 | Outpatient (CLI) | payer MEDICAID, SELFPAY ==
[2024-08-20 13:06] LABS: Calculated LDL 89 mg/dL (<100); Cholesterol 167 mg/dL (<200); HDL Cholesterol 49 mg/dL (>or=40); TSH (W/Ref FT4) 3.04 uIU/mL (0.36-3.74); Triglyceride 146 mg/dL (<150)
== END 2024-08-20 08:52 | disposition home or self-care (01) ==
LOC: LOS 08:51
PROVIDERS: PCP Family Medicine; Referring Provider Family Medicine; Visit Provider Family Medicine
DX: E03.9 Hypothyroidism, unspecified (principal); E78.5 Hyperlipidemia, unspecified
CPT/HCPCS: 36415; 80061; 84443